=== PATIENT | female | born 1985 | race Caucasian/White ===

== ENCOUNTER 2019-05-19 18:09 | Emergency (ER) | payer MEDICAID ==
[~2019-05-19] VITALS: Ht 165.1 cm; Wt 54.4 kg
--- NOTE | 2019-05-19 18:42 | PHYS DOC ---
Past Medical History Past Medical History: No Pertinent History Adult General Chief Complaint Chief Complaint: EYE PROBLEMS HPI HPI Patient is a 33 year old female who presents with left eye pain, redness and irritation. Started yesterday, itching and irritation, flushed eye. No better today. some drainage from the left eye this am. None since. no change in vision but has mild photophobia. no FB sensation, does not wear contacts or glasses. No headache. 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 No fevers. She is resting in no distress. States tetanus is UTD Review of Systems Review of Systems Constitutional: Denies fever or chills [] Eyes: Denies change in visual acuity. C/o left eye pain and redness, itching HENT: Denies nasal congestion or sore throat [] Respiratory: Denies cough or shortness of breath [] Cardiovascular: No additional information not addressed in HPI [] Musculoskeletal: Denies back pain or joint pain [] Integument: Denies rash or skin lesions [] Neurologic: Denies headache, focal weakness or sensory changes [] Endocrine: Denies polyuria or polydipsia [] All other systems were reviewed and found to be within normal limits, except as documented in this note. Current Medications Current Medications Current Medications Medications (Trade) Dose Ordered Sig/Ledy Start Time Stop Time Status Last Admin Dose Admin Dexamethasone (Maxidex) 1 drop 1X ONCE 05/19/19 19:15 05/19/19 19:16 DC Fluorescein Sodium (Ful-Marilyn) 1 strip 1X ONCE 05/19/19 19:00 05/19/19 19:01 DC Neomycin/ Polymyxin/ Dexamethasone (Maxitrol) 1 drop 1X ONCE 05/19/19 19:30 05/19/19 19:31 Neomycin/ Polymyxin/Bacitr/ Hydrocort (Cortisporin Ophth) 1 yasir 1X ONCE 05/19/19 19:15 05/19/19 19:16 Cancel Tetracaine HCl (Tetracaine) 40 drop STK-MED ONCE 05/19/19 18:51 05/19/19 18:51 DC Allergies Allergies Allergies Coded Allergies Type Severity Reaction Last Updated Verified No Known Drug Allergies 05/19/19 No Physical Exam Physical Exam Constitutional: Well developed, well nourished, no acute distress, non-toxic appearance. [] HENT: Normocephalic, atraumatic, bilateral external ears normal, oropharynx moist, no oral exudates, nose normal. [] Eyes: PERRLA, EOMI, conjunctiva erythema on the left, no obvious FB, no entrapment, no lid pain redness or swelling, no discharge. [] Neck: Normal range of motion, no tenderness, supple, no stridor. [] Cardiovascular:Heart rate regular rhythm, no murmur [] Lungs & Thorax: Bilateral breath sounds clear to auscultation [] Skin: Warm, dry, no erythema, no rash. [] Extremities: No tenderness, no cyanosis, no clubbing, ROM intact, no edema. [] Neurologic: Alert and oriented X 3, normal motor function, normal sensory function, no focal deficits noted. [] Psychologic: Affect normal, judgement normal, mood normal. [] Current Patient Data Vital Signs Vital Signs Date Time Temp Pulse Resp B/P (MAP) Pulse Ox O2 Delivery O2 Flow Rate FiO2 05/19/19 18:44 98.4 93 14 134/89 (104) 98 Room Air 98.4 EKG EKG [] Radiology/Procedures Radiology/Procedures [] Impressions: Left eye conjunctivitis Course & Med Decision Making Course & Med Decision Making Pertinent Labs and Imaging studies reviewed. (See chart for details) []Left eye pain redness itching, lid normal. reports normal vision Tetracaine and stain of eye: no uptake 20/40 visual acuity Stable for home care, Cortisporin drops Educated on home care fu and reasons to return to the ER Ankush Disclaimer Ankush Disclaimer This electronic medical record was generated, in whole or in part, using a voice recognition dictation system. Departure Departure Impression: Primary Impression: Acute conjunctivitis, left eye Disposition: HOME, SELF-CARE Condition: STABLE [facility]errals[facility] Patient Instructions: Bacterial Conjunctivitis, [id number] Additional Instructions: go home and rest Warm compress for drainage, cool compress to numb Motrin and Tylenol for pain Drops as prescribed See an Eye doctor if not better in 48 hours, return for any concerns or worsening symptoms Scripts Polymyxin B Sulf/Trimethoprim (POLYTRIM EYE DROPS) 10 Ml Drops 1 DROP LEFTEYE Q6HRS for 7 Days, #10 ML Prov: KARLA MCGARRY APRN 05/19/19 KARLA MCGARRY APRN May 19, 2019 18:42
[2019-05-19 18:44] VITALS: BP 134/89
[2019-05-19] MEDS ORDERED: TETRACAINE 0.5% OPHTH SOLUTION 4ML BOTTLE. ONE (18:51)
[2019-05-19] MEDS ORDERED: TETRACAINE 0.5% OPHTH SOLUTION 4ML BOTTLE. OS ONE (19:00)
[2019-05-19] MEDS ORDERED: FLUORESCEIN OPHTH TEST STRIP. OU ONE (19:00)
[2019-05-19] MEDS ORDERED: DEXAMETHASONE 0.1% OPHTH SOLUTION 5ML BOTTLE. OS ONE (19:15)
[2019-05-19] MEDS ORDERED: NEOMYCIN/BACI/POLY/HC OPHTH OINTMENT 3.5GM TUBE. OS ONE (19:15)
[2019-05-19] MEDS ORDERED: POLY10DR LEFTEYE (19:20)
[2019-05-19] MEDS ORDERED: NEO/POLYMYX/DEXAMETH OPHTH SUSPENSION 5ML BOTTLE. OS ONE (19:30)
== END 2019-05-19 19:30 | disposition home or self-care (01) ==
LOC: ER 18:09
DX: H10.32 Unspecified acute conjunctivitis, left eye (principal)
CPT/HCPCS: 99284

== ENCOUNTER 2019-09-30 04:03 | Emergency (ER) | payer MEDICAID ==
[~2019-09-30] VITALS: Ht 167.6 cm; Wt 61.4 kg
[~2019-09-30 04:03] MED LIST: HYDR-3164 PO; NAPR-695 PO; POLY10DR LEFTEYE
[2019-09-30] MEDS ORDERED: MORPHINE SULFATE 4 MG/ML VIAL. IV/SQ PRN (04:15)
[2019-09-30] MEDS ORDERED: IV NORMAL SALINE 1000ML BAG 1,000 ML IV SCH (04:30)
[2019-09-30] MEDS ORDERED: ONDANSETRON PF 4 MG/2 ML VIAL. IV ONE (04:30)
--- NOTE | 2019-09-30 04:31 | PHYS DOC ---
Past Medical History Past Medical History: Bipolar, Other Additional Past Medical Histor: HEP C (MARCIA NOLAN Jr., DO) Past Surgical History: (MARCIA NOLAN Jr., DO) Smoking Status: Current Every Day Smoker Alcohol Use: Occasionally Drug Use: Marijuana (MARCIA NOLAN Jr., DO) Adult General Chief Complaint Chief Complaint: BACK PAIN OR INJURY HPI HPI Patient is a 33 year old female who presents via EMS with report of acute lower back spasm that woke her up from sleep about 30 minutes prior to arrival. Patient rates her pain to be a 10 out of 10. She states that she is not able to get comfortable. She denies any recent injuries. Patient does indicate that the pain is making her nauseated but she has not vomited.[] (MARCIA NOLAN Jr., DO) Review of Systems Review of Systems Constitutional: Denies fever or chills [] Respiratory: Denies cough or shortness of breath [] Cardiovascular: No additional information not addressed in HPI [] GI: Denies abdominal pain, vomiting or diarrhea [] : Denies dysuria or hematuria [] Musculoskeletal: Complains of lower back pain [] Integument: Denies rash or skin lesions [] Neurologic: Denies headache, focal weakness or sensory changes [] All other systems were reviewed and found to be within normal limits, except as documented in this note. (MARCIA NOLAN Jr. DO) Current Medications Current Medications Current Medications Medications (Trade) Dose Ordered Sig/Ledy Start Time Stop Time Status Last Admin Dose Admin Fentanyl Citrate (Fentanyl 2ml Vial) 50 mcg 1X ONCE 09/30/19 06:15 09/30/19 06:16 DC Info (CONTRAST GIVEN -- Rx MONITORING) 1 each PRN DAILY PRN 09/30/19 06:15 10/02/19 06:14 Iohexol (Omnipaque 300 Mg/ml) 75 ml 1X ONCE 09/30/19 06:30 09/30/19 06:31 DC 09/30/19 06:50 75 ML Morphine Sulfate (Morphine Sulfate) 4 mg PRN Q15MIN PRN 09/30/19 04:15 10/01/19 04:14 09/30/19 05:17 4 MG Ondansetron HCl (Zofran) 4 mg 1X ONCE 09/30/19 04:30 09/30/19 04:31 DC 09/30/19 05:16 4 MG Orphenadrine Citrate (Norflex) 60 mg 1X ONCE 09/30/19 06:15 09/30/19 06:16 DC Sodium Chloride 1,000 ml @ 1,000 mls/hr Q1H 09/30/19 04:30 09/30/19 05:29 DC 09/30/19 05:16 1,000 MLS/HR (MAN LOPEZ MD) Allergies Allergies Allergies Coded Allergies Type Severity Reaction Last Updated Verified No Known Drug Allergies 05/19/19 No (MAN LOPEZ MD) Physical Exam Physical Exam Constitutional: Well developed, well nourished, appears uncomfortable, non-toxic appearance. [] HENT: Normocephalic, atraumatic, bilateral external ears normal, oropharynx moist, no oral exudates, nose normal. [] Eyes: PERRLA, EOMI, conjunctiva normal, no discharge. [] Neck: Normal range of motion, no tenderness, supple, no stridor. [] Cardiovascular: Regular rate and rhythm[] Lungs & Thorax: Bilateral breath sounds clear to auscultation [] Abdomen: Bowel sounds normal, soft, no tenderness. [] Skin: Warm, dry, no erythema, no rash. [] Back: There is palpable spasm in the left lower thoracic and lumbar paraspinal musculature with tenderness to palpation. [] Extremities: No tenderness, no cyanosis, no clubbing, ROM intact, no edema. [] Neurologic: Alert and oriented X 3, no focal deficits noted. [] (MARCIA NOLAN Jr. DO) Current Patient Data Vital Signs Vital Signs Date Time Temp Pulse Resp B/P (MAP) Pulse Ox O2 Delivery O2 Flow Rate FiO2 09/30/19 05:53 90 18 114/64 (81) 100 Room Air 09/30/19 04:35 98.1 98.1 (MAN LOPEZ MD) Lab Values Laboratory Tests Test 09/30/19 04:40 09/30/19 04:55 09/30/19 04:58 Urine Collection Type Unknown Urine Color Yellow Urine Clarity Clear Urine pH 7.5 Urine Specific [place] 1.010 Urine Protein Negative mg/dL (NEG-TRACE) Urine Glucose (UA) Negative mg/dL (NEG) Urine Ketones (Stick) Negative mg/dL (NEG) Urine Blood Negative (NEG) Urine Nitrite Negative (NEG) Urine Bilirubin Negative (NEG) Urine Urobilinogen Dipstick 0.2 mg/dL (0.2 mg/dL) Urine Leukocyte Esterase Trace (NEG) Urine RBC 0 /HPF (0-2) Urine WBC 0 /HPF (0-4) Urine Squamous Epithelial Cells Few /LPF Urine Renal Epithelial Cells Occ /LPF Urine Bacteria 0 /HPF (0-FEW) Urine Mucus Slight /LPF Urine Opiates Screen Neg (NEG) Urine Methadone Screen Neg (NEG) Urine Barbiturates Neg (NEG) Urine Phencyclidine Screen Neg (NEG) Urine Amphetamine/Methamphetamine Neg (NEG) Urine Benzodiazepines Screen Neg (NEG) Urine Cocaine Screen Neg (NEG) Urine Cannabinoids Screen Neg (NEG) Urine Ethyl Alcohol Neg (NEG) White Blood Count 10.9 x10^3/uL (4.0-11.0) Red Blood Count 4.00 x10^6/uL (3.50-5.40) Hemoglobin 12.0 g/dL (12.0-15.5) Hematocrit 35.0 % (36.0-47.0) L Mean Corpuscular Volume 88 fL (79-100) Mean Corpuscular Hemoglobin 30 pg (25-35) Mean Corpuscular Hemoglobin Concent 34 g/dL (31-37) Red Cell Distribution Width 12.5 % (11.5-14.5) Platelet Count 267 x10^3/uL (140-400) Neutrophils (%) (Auto) 64 % (31-73) Lymphocytes (%) (Auto) 23 % (24-48) L Monocytes (%) (Auto) 6 % (0-9) Eosinophils (%) (Auto) 6 % (0-3) H Basophils (%) (Auto) 1 % (0-3) Neutrophils # (Auto) 7.0 x10^3/uL (1.8-7.7) Lymphocytes # (Auto) 2.6 x10^3/uL (1.0-4.8) Monocytes # (Auto) 0.6 x10^3/uL (0.0-1.1) Eosinophils # (Auto) 0.7 x10^3/uL (0.0-0.7) Basophils # (Auto) 0.1 x10^3/uL (0.0-0.2) Sodium Level 142 mmol/L (136-145) Potassium Level 3.4 mmol/L (3.5-5.1) L Chloride Level 107 mmol/L (98-107) Carbon Dioxide Level 25 mmol/L (21-32) Anion Gap 10 (6-14) Blood Urea Nitrogen 16 mg/dL (7-20) Creatinine 0.9 mg/dL (0.6-1.0) Estimated GFR (Cockcroft-Gault) 72.6 BUN/Creatinine Ratio 18 (6-20) Glucose Level 107 mg/dL (70-99) H Calcium Level 8.8 mg/dL (8.5-10.1) Total Bilirubin 0.2 mg/dL (0.2-1.0) Aspartate Amino Transferase (AST) 19 U/L (15-37) Alanine Aminotransferase (ALT) 20 U/L (14-59) Alkaline Phosphatase 37 U/L (46-116) L Total Protein 6.1 g/dL (6.4-8.2) L Albumin 3.6 g/dL (3.4-5.0) Albumin/Globulin Ratio 1.4 (1.0-1.7) Lipase 154 U/L (73-393) POC Urine HCG, Qualitative Hcg negative (Negative) Laboratory Tests 09/30/19 04:55 Laboratory Tests 09/30/19 04:55 (MAN LOPEZ MD) Lab Values Laboratory Tests Test 09/30/19 04:40 09/30/19 04:55 09/30/19 04:58 Urine Collection Type Unknown Urine Color Yellow Urine Clarity Clear Urine pH 7.5 Urine Specific [place] 1.010 Urine Protein Negative mg/dL (NEG-TRACE) Urine Glucose (UA) Negative mg/dL (NEG) Urine Ketones (Stick) Negative mg/dL (NEG) Urine Blood Negative (NEG) Urine Nitrite Negative (NEG) Urine Bilirubin Negative (NEG) Urine Urobilinogen Dipstick 0.2 mg/dL (0.2 mg/dL) Urine Leukocyte Esterase Trace (NEG) Urine RBC 0 /HPF (0-2) Urine WBC 0 /HPF (0-4) Urine Squamous Epithelial Cells Few /LPF Urine Renal Epithelial Cells Occ /LPF Urine Bacteria 0 /HPF (0-FEW) Urine Mucus Slight /LPF Urine Opiates Screen Neg (NEG) Urine Methadone Screen Neg (NEG) Urine Barbiturates Neg (NEG) Urine Phencyclidine Screen Neg (NEG) Urine Amphetamine/Methamphetamine Neg (NEG) Urine Benzodiazepines Screen Neg (NEG) Urine Cocaine Screen Neg (NEG) Urine Cannabinoids Screen Neg (NEG) Urine Ethyl Alcohol Neg (NEG) White Blood Count 10.9 x10^3/uL (4.0-11.0) Red Blood Count 4.00 x10^6/uL (3.50-5.40) Hemoglobin 12.0 g/dL (12.0-15.5) Hematocrit 35.0 % (36.0-47.0) L Mean Corpuscular Volume 88 fL (79-100) Mean Corpuscular Hemoglobin 30 pg (25-35) Mean Corpuscular Hemoglobin Concent 34 g/dL (31-37) Red Cell Distribution Width 12.5 % (11.5-14.5) Platelet Count 267 x10^3/uL (140-400) Neutrophils (%) (Auto) 64 % (31-73) Lymphocytes (%) (Auto) 23 % (24-48) L Monocytes (%) (Auto) 6 % (0-9) Eosinophils (%) (Auto) 6 % (0-3) H Basophils (%) (Auto) 1 % (0-3) Neutrophils # (Auto) 7.0 x10^3/uL (1.8-7.7) Lymphocytes # (Auto) 2.6 x10^3/uL (1.0-4.8) Monocytes # (Auto) 0.6 x10^3/uL (0.0-1.1) Eosinophils # (Auto) 0.7 x10^3/uL (0.0-0.7) Basophils # (Auto) 0.1 x10^3/uL (0.0-0.2) Sodium Level 142 mmol/L (136-145) Potassium Level 3.4 mmol/L (3.5-5.1) L Chloride Level 107 mmol/L (98-107) Carbon Dioxide Level 25 mmol/L (21-32) Anion Gap 10 (6-14) Blood Urea Nitrogen 16 mg/dL (7-20) Creatinine 0.9 mg/dL (0.6-1.0) Estimated GFR (Cockcroft-Gault) 72.6 BUN/Creatinine Ratio 18 (6-20) Glucose Level 107 mg/dL (70-99) H Calcium Level 8.8 mg/dL (8.5-10.1) Total Bilirubin 0.2 mg/dL (0.2-1.0) Aspartate Amino Transferase (AST) 19 U/L (15-37) Alanine Aminotransferase (ALT) 20 U/L (14-59) Alkaline Phosphatase 37 U/L (46-116) L Total Protein 6.1 g/dL (6.4-8.2) L Albumin 3.6 g/dL (3.4-5.0) Albumin/Globulin Ratio 1.4 (1.0-1.7) Lipase 154 U/L (73-393) POC Urine HCG, Qualitative Hcg negative (Negative) Laboratory Tests 09/30/19 04:55 Laboratory Tests 09/30/19 04:55 (MARCIA NOLAN Jr., DO) EKG EKG [] (MARCIA NOLAN Jr., DO) Radiology/Procedures Radiology/Procedures [] (MARCIA NOLAN Jr., DO) Radiology/Procedures PROCEDURE: CT ABD PELV W/ IV CONTRST ONLY PQRS Compliance Statement: One or more of the following individualized dose reduction techniques were utilized for this examination: 1. Automated exposure control 2. Adjustment of the mA and/or kV according to patient size 3. Use of iterative reconstruction technique CT abdomen/pelvis with contrast 09/30/2019 5:32 AM INDICATION: Severe low back pain radiating around the sides COMPARISON: None available TECHNIQUE: Multiple axial CT images of the abdomen and pelvis were obtained after the intravenous administration of 75 mL Omnipaque 300. Coronal and sagittal reformats are provided. FINDINGS: Visualized portions of the lung bases are clear. Heart size is within normal limits. 9 mm hypodensity in the right hepatic lobe, segment VIII, measures higher than that of simple fluid and remains indeterminate (series 2, image 15). Liver is homogeneous in enhancement. Portal venous system is widely patent. Spleen, bilateral adrenal glands, and pancreas are normal in appearance. Gallbladder is present without adjacent inflammatory changes. The abdominal aorta is normal in course and caliber. There are no pathologically enlarged lymph nodes in the abdomen and pelvis. There is no abdominal free fluid. There is no free intraperitoneal air. The kidneys enhance symmetrically. There is no suspicious renal mass. There is no hydronephrosis. There are no suspected calculi within the kidneys, ureters or urinary bladder. IUD is present, although possibly inverted. Bilateral adnexal varices are noted. Small volume pelvic free fluid is present, possibly physiologic. No suspicious adnexal mass. Small and large bowel are normal in caliber. There is no evidence for bowel obstruction. There are no pericolonic inflammatory changes. A normal, nondilated appendix is visualized without adjacent inflammatory changes. No suspicious osseous abnormality is identified. Levoconvex curvature of the lumbar spine is present. IMPRESSION: 1. IUD is present, possibly inverted. Correlate with history of pain and any prior imaging if available. 2. Trace pelvic free fluid, likely physiologic. Bilateral adnexal varices are present. Pelvic ultrasound may be of benefit. 3. Indeterminate 9 mm hypodensity in the right hepatic lobe is too small to characterize. This finding measures higher than simple fluid density. Correlate with hepatobiliary enzymes. If there is persistent clinical concern, further catheterization with abdominal MRI with and without contrast is recommended. (MAN LOPEZ MD) Course & Med Decision Making Course & Med Decision Making Pertinent Labs and Imaging studies reviewed. (See chart for details) Patient moved to room upon arrival was evaluated by ER medical staff after which an IV was established and blood work was drawn. Ultimately a CT of the abdomen and pelvis with IV contrast is also been ordered for further evaluation. At this time, CT is pending and patient is being signed out to the oncoming ER physician at 6:00 AM. (MARCIA NOLAN Jr. DO) Course & Med Decision Making 8:10 AM: The patient's condition remains stable. Care was assumed at 6 AM shift change. The patient awakened with lower back pain and spasm. She is feeling somewhat better at this time. She has been reexamined. REPEAT PHYSICAL EXAM: CONSTITUTIONAL: Well developed, well nourished HEAD: normocephalic, atraumatic EENT: PERRL, EOMI. Conjunctivae normal color, sclerae non-icteric; moist mucous membranes. NECK: Supple, non-tender; no meningismus. LUNGS: Lungs CTA, breathing even and unlabored. Normal air movement. HEART: Regular rate and rhythm, no murmur CHEST: No deformity; non-tender ABDOMEN: The abdomen is soft, and non-tender, no masses or bruits. There is no suprapubic tenderness to palpation. EXTREM: Normal ROM; no deformity, no calf tenderness. Normal pulses palpable in all extremities. There is no pedal edema. SKIN: No rash; no diaphoresis NEURO: Alert; normal speech and cognition; CN's grossly intact; strength grossly intact without focal deficit. Patellar reflexes are 2+ bilaterally. Distal sensation is normal. There is no perineal anesthesia. There is no foot drop. BACK: No CVA TTP. There is mild tenderness to palpation diffusely of the paraspinal muscles of the lumbar spine bilaterally.There is no bony tenderness to palpation of the thoracic or lumbar spine. I discussed test results in detail with the patient including the need for outpatient follow-up with gynecology as well as possible liver imaging. The pat kolby states she has a history of hepatitis C and has taken antiviral medication., But has not followed up to ensure that she has achieved viral eradication. I did discuss importance of close outpatient follow-up. (MAN LOPEZ MD) Dragon Disclaimer Dragon Disclaimer This electronic medical record was generated, in whole or in part, using a voice recognition dictation system. (MARCIA NOLAN Jr. DO) Departure Departure Impression: Primary Impression: Low back pain Disposition: HOME, SELF-CARE Condition: STABLE Referrals: ANIBAL OLSON MD, MICHAEL F MD Patient Instructions: Back Pain, Adult Additional Instructions: Applying a heating pad to the affected area may help improve your symptoms. The prescribed medications may cause drowsiness-use caution while taking. There were some abnormalities noted on your IUD, as well as on your liver, and further outpatient evaluation with gynecology, and outpatient liver imaging is recommended. Scripts Diclofenac Sodium (DICLOFENAC SODIUM) 50 Mg Tablet. 1 TAB PO BID, #20 TAB 0 Refills Prov: MAN LOPEZ MD 09/30/19 Cyclobenzaprine Hcl (CYCLOBENZAPRINE HCL) 10 Mg Tablet 1 TAB PO TID PRN for PAIN, #30 TAB Prov: MAN LOPEZ MD 09/30/19 MARCIA NOLAN Jr., DO Sep 30, 2019 04:31 MAN LOPEZ MD Sep 30, 2019 08:13
[2019-09-30 05:18] LABS: BASO # 0.1 x10^3/uL (0.0-0.2); BASO % 1 % (0-3); EOS # 0.7 x10^3/uL (0.0-0.7); EOS % 6 % (0-3); LYMPH # 2.6 x10^3/uL (1.0-4.8); LYMPH % 23 % (24-48); MEAN CORPUSCULAR HEMOGLOBIN 30 pg (25-35); MEAN CORPUSCULAR HGB CONC 34 g/dL (31-37); MEAN CORPUSCULAR VOLUME 88 fL (79-100); MONO # 0.6 x10^3/uL (0.0-1.1); MONO % 6 % (0-9); NEUT % 64 % (31-73); PLATELET COUNT 267 x10^3/uL (140-400); RED CELL DISTRIBUTION WIDTH 12.5 % (11.5-14.5); WHITE BLOOD COUNT 10.9 x10^3/uL (4.0-11.0)
[2019-09-30 05:22] LABS: BILIRUBIN,URINE NEGATIVE (NEG); CLARITY,URINE CLEAR; COLOR,URINE YELLOW; NITRITE,URINE NEGATIVE (NEG); PH,URINE 7.5; PROTEIN,URINE NEGATIVE (NEG-TRACE); UROBILINOGEN,URINE 0.2 mg/dL (0.2 mg/dL)
[2019-09-30 05:23] LABS: CALCIUM 8.8 mg/dL (8.5-10.1); CREATININE 0.9 mg/dL (0.6-1.0); GFR 72.6; POTASSIUM 3.4 mmol/L (3.5-5.1)
[2019-09-30 05:27] LABS: ALBUMIN 3.6 g/dL (3.4-5.0); ALBUMIN/GLOBULIN RATIO 1.4 (1.0-1.7); TOTAL BILIRUBIN 0.2 mg/dL (0.2-1.0); TOTAL PROTEIN 6.1 g/dL (6.4-8.2)
[2019-09-30 05:29] LABS: BARBITURATES NEG (NEG); BENZODIAZEPINES NEG (NEG); CANNABINOIDS NEG (NEG); COCAINE NEG (NEG); METHADONE NEG (NEG); OPIATES NEG (NEG); PHENCYCLIDINE NEG (NEG)
[2019-09-30 05:33] LABS: AMPHETAMINE/METHAMPHETAMINE NEG (NEG)
[2019-09-30 05:53] LABS: BACTERIA,URINE 0 /HPF (0-FEW); RBC,URINE 0 /HPF (0-2); SQUAMOUS EPITHELIAL CELL,UR FEW /LPF; WBC,URINE 0 /HPF (0-4)
[2019-09-30] MEDS ORDERED: fentaNYL PF VIAL 100 MCG/2 ML VIAL IVP ONE (06:15)
[2019-09-30] MEDS ORDERED: CONTRAST GIVEN. MC PRN (06:15)
[2019-09-30] MEDS ORDERED: ORPHENADRINE CITRATE 60 MG/2 ML VIAL. IV ONE (06:15)
[2019-09-30] MEDS ORDERED: IOHEXOL 300 MG/ML 100ML VIAL. IV ONE (06:30)
[2019-09-30 07:53] VITALS: BP 97/57
--- NOTE | 2019-09-30 07:54 | RAD ---
PQRS Compliance Statement: One or more of the following individualized dose reduction techniques were utilized for this examination: 1. Automated exposure control 2. Adjustment of the mA and/or kV according to patient size 3. Use of iterative reconstruction technique CT abdomen/pelvis with contrast 09/30/2019 5:32 AM INDICATION: Severe low back pain radiating around the sides COMPARISON: None available TECHNIQUE: Multiple axial CT images of the abdomen and pelvis were obtained after the intravenous administration of 75 mL Omnipaque 300. Coronal and sagittal reformats are provided. FINDINGS: Visualized portions of the lung bases are clear. Heart size is within normal limits. 9 mm hypodensity in the right hepatic lobe, segment VIII, measures higher than that of simple fluid and remains indeterminate (series 2, image 15). Liver is homogeneous in enhancement. Portal venous system is widely patent. Spleen, bilateral adrenal glands, and pancreas are normal in appearance. Gallbladder is present without adjacent inflammatory changes. The abdominal aorta is normal in course and caliber. There are no pathologically enlarged lymph nodes in the abdomen and pelvis. There is no abdominal free fluid. There is no free intraperitoneal air. The kidneys enhance symmetrically. There is no suspicious renal mass. There is no hydronephrosis. There are no suspected calculi within the kidneys, ureters or urinary bladder. IUD is present, although possibly inverted. Bilateral adnexal varices are noted. Small volume pelvic free fluid is present, possibly physiologic. No suspicious adnexal mass. Small and large bowel are normal in caliber. There is no evidence for bowel obstruction. There are no pericolonic inflammatory changes. A normal, nondilated appendix is visualized without adjacent inflammatory changes. No suspicious osseous abnormality is identified. Levoconvex curvature of the lumbar spine is present. IMPRESSION: 1. IUD is present, possibly inverted. Correlate with history of pain and any prior imaging if available. 2. Trace pelvic free fluid, likely physiologic. Bilateral adnexal varices are present. Pelvic ultrasound may be of benefit. 3. Indeterminate 9 mm hypodensity in the right hepatic lobe is too small to characterize. This finding measures higher than simple fluid density. Correlate with hepatobiliary enzymes. If there is persistent clinical concern, further catheterization with abdominal MRI with and without contrast is recommended. Electronically signed by: Annamaria Collins MD (09/30/2019 7:51 AM) [id number]
[2019-09-30] MEDS ORDERED: DICL50TA4 PO (08:13)
[2019-09-30] MEDS ORDERED: CYCL10TA2 PO (08:13)
== END 2019-09-30 08:24 | disposition home or self-care (01) ==
LOC: ER 04:03
DX: M54.5 Low back pain (principal); R11.0 Nausea; F31.9 Bipolar disorder, unspecified; F17.200 Nicotine dependence, unspecified, uncomplicated
CPT/HCPCS: 36415; 74177; 80053; 80307; 81001; 81025; 83690; 85025; 87086; 96374; 96375; 99285; J2270; J2405; J7030; Q9967

== ENCOUNTER → 2019-10-25 | Outpatient (CLI) | payer MEDICAID ==
[2019-09-30 07:53] VITALS: BP 97/57
[~2019-10-25] MED LIST changes: +CYCL10TA2 PO; +DICL50TA4 PO
--- NOTE | 2019-10-25 12:26 | KCIC ---
Examination: LUMBAR SPINE MIN 4V History: Low back pain with bilateral sciatica Comparison/Correlation: None Findings: Total of 5 in the distal the lumbar spine were obtained. Alignment is normal. Vertebral body heights and disc spaces are adequate. Levoconvex scoliosis of the lumbar spine is mild. Intrauterine device is identified. Impression: No suspicious process. Levo convexity of the lumbar spine. Electronically signed by: Rickie Forman MD (10/25/2019 12:23 PM) [id number]
== END ==
LOC: KCIC 11:37
PROVIDERS: ATTEND Family Medicine
DX: M41.86 Other forms of scoliosis, lumbar region (principal)
CPT/HCPCS: 72110